=== PATIENT | male | born 1980 | race Caucasian/White ===

== ENCOUNTER 2021-05-31 22:49 | Emergency (ER) | payer OTHER, MEDICAID ==
[~2021-05-31] VITALS: Ht 180.3 cm; Wt 106.0 kg
[2021-06-01 01:25] LABS: BASOPHILS % 0.2 % (0.0-2.0); CHLORIDE 106 mEq/L (98-107); EOSINOPHILS % 1.7 % (0.0-5.0); HEMOGLOBIN. 14.9 g/dL (14.0-18.0); LYMPHOCYTES % 26.6 % (20.0-50.0); MEAN CORPUSCULAR HEMOGLOBIN 32.4 pg (28.0-32.0); MEAN CORPUSCULAR VOLUME 93.6 fL (80.0-94.0); MEAN PLATELET VOLUME 8.2 fl (7.4-10.4); MONOCYTES % 6.6 % (2.0-8.0); NEUTROPHILS % 64.9 % (40.0-76.0); PLATELET 265 x1000/uL (130-400); RED BLOOD CELL COUNT 4.59 mill/uL (4.7-6.1); RED CELL DISTRIBUTION WIDTH 12.7 % (11.6-14.6)
[2021-06-01 01:29] LABS: ETHANOL BLOOD < 10 mg/dL
[2021-06-01 02:21] LABS: *BARBITURATES SCREEN URINE NEGATIVE (NEGATIVE); *BENZODIAZEPINES SCREEN URINE NEGATIVE (NEGATIVE); *COCAINE SCREEN URINE NEGATIVE (NEGATIVE); CANNABINOID URINE SCREEN NEGATIVE (NEGATIVE); METHADONE URINE SCREEN NEGATIVE (NEGATIVE); OPIATES URINE SCREEN NEGATIVE (NEGATIVE); PHENCYCLIDINE URINE SCREEN NEGATIVE (NEGATIVE)
[2021-06-01 02:22] LABS: *AMPHETAMINES SCREEN URINE NEGATIVE (NEGATIVE)
[2021-06-01 04:16] VITALS: BP 132/68
== END 2021-06-01 04:15 | disposition home or self-care (01) ==
LOC: EDSEX 22:49 → ER 22:49
DX: R42 Dizziness and giddiness (principal); G40.909 Epilepsy, unspecified, not intractable, without status epilepticus; F31.9 Bipolar disorder, unspecified
CPT/HCPCS: 36415; 71045; 80053; 80305; 80320; 84484; 85025; 93005; 99285; G0480